=== PATIENT | male | born 1935 | race Caucasian/White ===

== ENCOUNTER → 2022-04-24 | Outpatient (CLI) | payer MEDICARE ==
--- NOTE | 2022-04-24 10:11 | US ---
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 CKD EXAM MEASUREMENTS: Right Kidney: 8.5 x 3.9 x 3.9 cm Left Kidney: 12.9 x 4.9 x 6.6 cm Right Kidney: No hydronephrosis or masses seen , thinning of the right renal cortex. Left Kidney: No hydronephrosis or masses seen Bladder: wnl There is no evidence for hydronephrosis at this point in time. No nephrolithiasis is seen. No jose antonio s are identified. The urinary bladder is anechoic. Bilateral ureteral jets are seen. IMPRESSION: 1. No evidence of obstructive uropathy. 2. Thinning of the right renal cortex consistent with medical renal disease/atrophy changes. 3.
== END | disposition home or self-care (01) ==
LOC: RADUSWWP 09:39
PROVIDERS: ATTEND Internal Medicine
DX: N18.31 Chronic kidney disease, stage 3a (principal)
CPT/HCPCS: 76770

== ENCOUNTER → 2022-11-23 | Outpatient (CLI) | payer MEDICARE ==
--- NOTE | 2022-11-23 09:13 | US ---
EXAMINATION TYPE: US venous doppler duplex LE LT DATE OF EXAM: 11/23/2022 9:06 AM COMPARISON: NONE CLINICAL INDICATION: Male, 87 years old with history of M79.605 PAIN IN LEFT LEG; Pt states left leg pain SIDE PERFORMED: Left TECHNIQUE: The lower extremity deep venous system is examined utilizing real time linear array sonog alexandru with graded compression, doppler sonography and color-flow sonography. VESSELS IMAGED: Common Femoral Vein Deep Femoral Vein Greater Saphenous Vein * Femoral Vein Popliteal Vein Small Saphenous Vein * Proximal Calf Veins (* superficial vessels) Left Leg: Negative for DVT IMPRESSION: Grayscale, color doppler, spectral doppler imaging performed of the deep veins of the lo wer extremities. There is normal flow, compressibility, vascular waveforms.
== END | disposition home or self-care (01) ==
LOC: RADUSWWP 08:39
PROVIDERS: ATTEND Family Medicine
DX: M79.605 Pain in left leg (principal)

== ENCOUNTER → 2024-10-10 | Outpatient (CLI) | payer MEDICARE ==
--- NOTE | 2024-10-10 10:16 | US ---
EXAMINATION TYPE: US kidneys/renal and bladder DATE OF EXAM: 10/10/2024 COMPARISON: 04/24/2022 CLINICAL INDICATION: Male, 89 years old with history of N18.32 STAGE 3B CKD; TECHNIQUE: Grayscale imaging of the bilateral kidneys and urinary bladder: FINDINGS: EXAM MEASUREMENTS: Right Kidney: 7.6 x 4.0 x 3.8 cm Left Kidney: 10.5 x 5.6 x 5.0 cm No hydronephrosis on either side. Right Kidney: small in size, cortical thinning Left Kidney: wnl Bladder: wnl Bilateral Jets seen: right jet seen, left jet not seen Incidental 1.2 cm gallstone. IMPRESSION: 1. Asymmetrically atrophic right kidney. No hydronephrosis on either side. 2. Incidental 1.2 cm gallstone. [facility], Workstation: [employer], 10/10/2024 10:13 AM
== END | disposition home or self-care (01) ==
LOC: RADUSWWP 08:45
PROVIDERS: ATTEND Family Medicine
DX: N18.32 Chronic kidney disease, stage 3b (principal); N26.1 Atrophy of kidney (terminal)
CPT/HCPCS: 76770